=== PATIENT | male | born 1975 | race Caucasian/White ===

== ENCOUNTER 2016-11-24 13:57 | Emergency (ER) | payer MEDICAID ==
[2016-11-24 14:05] VITALS: BP 139/91; PULSE 90; RESP 20; TEMP 98.1; O2SAT 94
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
[2016-11-24] MEDS ORDERED: ACETAMINOPHEN 500 MG TAB PO ONE (14:42)
== END 2016-11-24 15:07 | disposition home or self-care (01) ==
DX: M54.6 Pain in thoracic spine (principal); G89.21 Chronic pain due to trauma; Z76.0 Encounter for issue of repeat prescription

== ENCOUNTER 2016-12-19 15:18 | Emergency (ER) | payer MEDICAID ==
[2016-12-19 15:26] VITALS: BP 128/76; PULSE 110; RESP 18; TEMP 97.5; O2SAT 95
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
[2016-12-19] MEDS ORDERED: IBUPROFEN 600 MG TAB PO ONE (16:42)
[2016-12-19] MEDS ORDERED: OXYCODONE/APAP 5/325MG PREPACK#4 BTL TAKEHOME ONE (17:06)
== END 2016-12-19 17:45 | disposition home or self-care (01) ==
DX: S52.121A Displaced fracture of head of right radius, initial encounter for closed fracture (principal); S09.90XA Unspecified injury of head, initial encounter; S53.401A Unspecified sprain of right elbow, initial encounter; F17.200 Nicotine dependence, unspecified, uncomplicated; Y08.89XA Assault by other specified means, initial encounter
CPT/HCPCS: A4565

== ENCOUNTER 2016-12-30 20:21 | Emergency (ER) | payer MEDICAID ==
[2016-12-30 20:29] VITALS: TEMP 98.1
--- NOTE | 2016-12-30 20:37 | EDPHY ---
H & P Stated Complaint: anxiety, seizures HPI/ROS: HPI CHIEF COMPLAINT: Anxiety, I ran out of my anxiety medication HISTORY OF PRESENT ILLNESS: This patient 41-year-old male significant past medical history for anxiety and panic attacks he tells me that he takes Xanax 1 mg three times daily. He tells me he ran out of this medication a week ago. His anxiety has increased. He tells me cannot get his medications filled until he sees primary care doctor. He has an appointment next week. He denies illicit drug use alcohol, he states since he has been out of his Xanax for the past week he has had increasing anxiety and thinks he may have had 2 seizures. Denies chest pain or shortness of breath. Does tell me he has been taking Xanax for years. Chronically dependent. Past Medical History: Anxiety and panic attacks Past Surgical History: No recent surgical history Social History: Denies daily use of drugs alcohol, does smoke tobacco. Family History: Noncontributory ROS REVIEW OF SYSTEMS: A comprehensive 10 point review of systems is otherwise negative aside from elements mentioned in the history of present illness. Exam Constitutional anxious, otherwise appears well, triage nursing summary reviewed , vital signs reviewed, awake/alert. Eyes normal conjunctivae and sclera, EOMI, PERRLA. HENT normal inspection, atraumatic, moist mucus membranes, no epistaxis, neck supple/ no meningismus, no raccoon eyes. Respiratory clear to auscultation bilaterally, normal breath sounds, no respiratory distress, no wheezing. Cardiovascular rate normal, regular rhythm, no murmur, no edema, distal pulses normal. Gastrointestinal soft, non-tender, no rebound, no guarding, normal bowel sounds, no distension, no pulsatile mass. Genitourinary no CVA tenderness. Musculoskeletal no midline vertebral tenderness, full range of motion, no calf swelling, no tenderness of extremities, no meningismus, good pulses, neurovascularly intact. Skin pink, warm, & dry, no rash, skin atraumatic. Neurologic awake, alert and oriented x 3, AAOx3, moves all 4 extremities equally, motor intact, sensory intact, CN II-XII intact, normal cerebellar, normal vision, normal speech. Psychiatric normal mood/affect. Heme/Lymph/Immune no lymphadenopathy. Differential Diagnosis: Includes but is not limited to in a particular order acute anxiety, panic attack, benzo withdrawal, benzo dependency, benzo withdrawal seizure Medical Decision Making: This patient's vital signs are stable he appears well nontoxic acute. He tells me he is out of his Xanax for 1 week. Tells me he may have had 2 seizures due to this. I explained that I will give him extremely limited supply of Xanax from the emergency room however he understands that this emergency room does not prescribe benzos or narcotics routinely from the emergency room needs follow-up with his primary care doctor to have his Xanax refilled. He is agreeable with this plan. At this time he has no evidence of benzo withdrawal specifically no tachycardia no tremors, no seizure activity here in the emergency room. Re-evaluation: Patient prescribed 5 tabs of Xanax. Source: Patient - Personal History Current Tetanus/Diphtheria Vaccine: Yes Current Tetanus Diphtheria and Acellular Pertussis (TDAP): Yes Tetanus Vaccine Date: within last 10 yrs - Medical/Surgical History Hx Asthma: No Hx Chronic Respiratory Disease: No Hx Diabetes: No Hx Cardiac Disease: No Hx Renal Disease: No Hx Cirrhosis: No Hx Alcoholism: No Hx HIV/AIDS: No Hx Splenectomy or Spleen Trauma: No Other PMH: chronic pain, PTSD, SZ, anxiety, degenerative bone - Social History Smoking Status: Current every day smoker Constitutional: Initial Vital Signs Temperature (C) 36.7 C 12/30/16 20:26 Heart Rate 99 12/30/16 20:26 Respiratory Rate 16 12/30/16 20:26 Blood Pressure 131/87 H 12/30/16 20:26 O2 Sat (%) 96 12/30/16 20:26 O2 Delivery Mode Room Air Allergies/Adverse Reactions: psychotropic meds Allergy (Uncoded 12/30/16 20:24) Home Medications: Medication Instructions Recorded Oxycontin 11/24/16 Percocet 10-325 mg Tablet 11/24/16 traMADol 11/24/16 oxyCODONE HCL/ACETAMINOPHEN 1 each PO Q4-6PRN PRN #15 tablet 12/19/16 [Percocet 5-325 mg Tablet] ALPRAZolam 12/30/16 ALPRAZolam [Alprazolam] 1 mg PO BID #5 tablet 12/30/16 Departure - Departure Disposition: Home, Routine, Self-Care Clinical Impression: Anxiety Condition: Good Instructions: Anxiety (ED) Additional Instructions: 1. You need to follow up with her primary care doctor about getting prescribed your Xanax. Referrals: UNKNOWN,[facility] [Other] - As per Instructions Prescriptions: ALPRAZolam [Alprazolam] 1 mg PO BID #5 tablet
[2016-12-30 20:50] VITALS: BP 147/97; PULSE 98; RESP 20; O2SAT 94
== END 2016-12-30 20:50 | disposition home or self-care (01) ==
DX: F41.9 Anxiety disorder, unspecified (principal); F17.200 Nicotine dependence, unspecified, uncomplicated

== ENCOUNTER 2017-01-05 19:04 | Emergency (ER) | payer MEDICAID ==
[2017-01-05 19:15] VITALS: BP 132/84; PULSE 106; RESP 14; TEMP 98.1; O2SAT 93
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
== END 2017-01-05 20:00 | disposition home or self-care (01) ==
DX: M25.521 Pain in right elbow (principal); F17.200 Nicotine dependence, unspecified, uncomplicated